=== PATIENT | female | born 2000 | race Caucasian/White ===

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

== ENCOUNTER → 2021-05-25 18:33 | Outpatient (BNVA) | payer OTHER, MEDICAID, SELFPAY | PROVIDERS: Visit Provider Nurse Practitioner Family | DX: R53.83 Other fatigue (principal); E16.2 Hypoglycemia, unspecified; D72.829 Elevated white blood cell count, unspecified | CPT/HCPCS: 80053; 80061; 81000; 81003; 82306; 82607; 83036; 84443; 85025; 86308; 86618; 86666; 86757 ==

== ENCOUNTER → 2021-05-27 15:07 | Outpatient (BNVA) | payer OTHER, MEDICAID, SELFPAY | PROVIDERS: Visit Provider Nurse Practitioner Family | DX: R30.0 Dysuria (principal); R50.9 Fever, unspecified; Z20.822 Contact with and (suspected) exposure to COVID-19; J32.0 Chronic maxillary sinusitis | CPT/HCPCS: 81003; 87086; 87635 ==

== ENCOUNTER → 2021-06-07 11:57 | Outpatient (BNVA) | payer OTHER, MEDICAID, SELFPAY | PROVIDERS: Visit Provider Nurse Practitioner Family | DX: N89.8 Other specified noninflammatory disorders of vagina (principal) | CPT/HCPCS: 87491; 87591; 87661 ==

== ENCOUNTER → 2021-08-23 14:24 | Outpatient (BNVA) | payer OTHER, MEDICAID, SELFPAY | PROVIDERS: Visit Provider Nurse Practitioner Family | DX: Z20.822 Contact with and (suspected) exposure to COVID-19 (principal) | CPT/HCPCS: 87635 ==

== ENCOUNTER 2022-10-19 16:10 | Outpatient (CLI) | payer MEDICAID, SELFPAY ==
[2022-10-19 16:10] VITALS: BMI 32.8
[2022-10-19 16:35] VITALS: BP 110/58; PULSE 82
[2022-10-19 16:55] VITALS: BP 107/53; PULSE 79
[2022-10-19 17:21] VITALS: BP 107/53; PULSE 79; RESP 18; TEMP 36.7
== END 2022-10-19 17:15 | disposition home or self-care (01) ==
LOC: OPOB 16:10 → OBGYN 16:12
PROVIDERS: Visit Provider Family Medicine
DX: O26.899 Other specified pregnancy related conditions, unspecified trimester (principal); Z3A.00 Weeks of gestation of pregnancy not specified; R10.9 Unspecified abdominal pain
CPT/HCPCS: 59025; 99211

== ENCOUNTER 2022-11-27 22:41 | Outpatient (CLI) | payer MEDICAID, SELFPAY ==
[2022-11-27 22:53] VITALS: BP 110/58; PULSE 92
[2022-11-27 22:54] VITALS: TEMP 35.7
[2022-11-27 23:24] VITALS: BP 107/54; PULSE 88; TEMP 35.6
[2022-11-27 23:30] VITALS: BP 107/54; PULSE 88; RESP 15; TEMP 35.6; BMI 33.5
== END 2022-11-27 23:31 | disposition home or self-care (01) ==
LOC: OPOB 22:45 → OBGYN 23:29
PROVIDERS: Visit Provider Family Medicine
DX: O26.899 Other specified pregnancy related conditions, unspecified trimester (principal); R10.9 Unspecified abdominal pain; Z3A.00 Weeks of gestation of pregnancy not specified
CPT/HCPCS: 59025; 99211

== ENCOUNTER 2023-08-01 12:58 | Emergency (ER) | payer MEDICAID, SELFPAY ==
[2023-08-01 13:12] VITALS: BP 122/78; PULSE 73; RESP 18; TEMP 36.4; O2SAT 100
--- NOTE | 2023-08-01 13:22 | W.ED.FEMALGU ---
HPI - Female Genitourinary General: Chief complaint: Vaginal Bleeding Stated complaint: vaginal bleeding Time Seen by Provider: 08/01/23 13:09 Source: patient Mode of arrival: ambulatory Limitations: no limitations History of Present Illness: Patient is a 23-year-old female presents to ED today for evaluation of a possible miscarriage. Patient states she has had 2 positive home tests over the past few days. She is approximately 8 months from the of her daughter. She states following delivery she was not on any methods of contraception. She states periods are normally irregular and have continued to be irregular since giving so she does not know her last menstrual period. She states this morning she noticed a small amount (quantifies as a few teaspoons) of bright red blood in the toilet. She states when she wiped there was hardly any blood on the toilet paper. No clots. She reports mild intermittent cramping. Denies vaginal discharge. Patient is monogamous with her . No concern for STIs. States this morning when she urinated-it hurt. MD elicited complaint: vaginal bleeding and possible miscarriage Onset (ago): hour(s) Severity: mild Quality of pain: cramping Consistency: intermittent Vaginal discharge: none Vaginal bleeding: scant Exacerbating factors: none Relieving factors: none Associated symptoms: Deny abdominal pain, headache(s), nausea or vaginal discharge Sexual activity: Yes Patient : Yes Possible : at home test positive Review of Systems Card: Denies: chest pain Resp: Denies: dyspnea GI: Denies: abdominal pain, nausea, vomiting or diarrhea : Reports: dysuria (x 1 this morning), vaginal bleeding, irregular period and pelvic pain (intermittent cramping); Denies: flank pain, difficulty voiding, urinary frequency, urinary urgency, urinary hesitancy, vaginal odor, vaginal discharge or dyspareunia Musc: Denies: neck pain, back pain, extremity pain or joint pain Skin/Breast: Denies: rash Neuro: Denies: headache(s), numbness in extremities, weakness in extremities or sensory changes PFSH ED PFSH: Medical History History of asthma Surgical History No pertinent past surgical history Family History Denies family history of Diabetes CAD (coronary artery disease) Clotting disorder Bleeding disorder Cancer Social History Smoking and tobacco/nicotine status: never used tobacco/nicotine Second hand smoke exposure: No Alcohol intake: never Substance/Drug Use: never Adopted: No Caregiver/support person: Yes (FAMILY) Lives independently: No Household members: family Marital status: Single service: No Current occupational status: employed Current occupation: [employer] Current gender identity: Female Special carlos needs: No Physical Exam Const: COMMON NORMALS: no acute distress, patient oriented x3, no limitations, healthy appearing and alert Resp: COMMON NORMALS: normal respiratory effort Cardio: COMMON NORMALS: regular rate and regular rhythm RATE: regular rate RHYTHM: regular rhythm GI: COMMON NORMALS: Normal to inspection, nondistended, normoactive bowel sounds present, Soft to palpation and non-tender PALPATION: Yes Soft to palpation : COMMON NORMALS: Yes no CVA tenderness BLADDER/KIDNEY EXAM: Yes no CVA tenderness Back/Pelvis: COMMON NORMALS: no CVA tenderness Neuro: COMMON NORMALS: patient oriented x3 SENSORIUM/ORIENTATION: Yes alert Course Vital Signs: Vital signs: Vital Signs Temperature 97.6 F 08/01/23 13:12 Pulse Rate 73 08/01/23 13:12 Respiratory Rate 18 08/01/23 13:12 Blood Pressure 122/78 08/01/23 13:12 Pulse Oximetry 100 08/01/23 13:12 Oxygen Delivery Me thod Room Air 08/01/23 13:12 MDM - Female Medical Decision Making Patient here with complaints of vaginal bleeding and two positive home test. Blood work today is unremarkable. Serum hCG is 10.72 which could correspond to a very very early although with her bleeding this could be trending downward with a miscarriage. At this level nothing is going to be seen on ultrasound. Discussed that she needs to follow-up with her primary care/OB provider so they can repeat hCG later this week/early next week. Return ED precautions given. Lab Data 08/01/23 13:27 Laboratory Results WBC 3.56 10^3/uL (3.29-11.43) 08/01/23 13:27 RBC 4.87 10^6/uL (3.85-5.65) 08/01/23 13:27 Hgb 11.60 g/dL (11.27-16.99) 08/01/23 13:27 Hct 37.7 % (36-47) 08/01/23 13:27 MCV 77.4 fl (85-98) L 08/01/23 13:27 MCH 23.8 pg (27-33) L 08/01/23 13:27 MCHC 30.8 g/dL (30-55) 08/01/23 13:27 RDW 16.1 % (12.1-15.1) H 08/01/23 13:27 Plt Count 160 10^3/cmm (157-399) 08/01/23 13:27 MPV 10.4 fL (7.4-10.4) 08/01/23 13:27 Neut % (Auto) 40.4 % 08/01/23 13:27 Lymph % (Auto) 48.3 % 08/01/23 13:27 [place] % (Auto) 9.3 % 08/01/23 13:27 Eos % (Auto) 1.4 % 08/01/23 13:27 Baso % (Auto) 0.6 % 08/01/23 13:27 Neut # (Auto) 1.44 10^3/uL (1.8-7.7) L 08/01/23 13:27 Lymph # (Auto) 1.7 10^3/uL (0.8-4.8) 08/01/23 13:27 [place] # (Auto) 0.3 10^3/uL (0.2-0.9) 08/01/23 13:27 Eos # (Auto) 0.1 10^3/uL (0.0-0.8) 08/01/23 13:27 Baso # (Auto) 0.0 10^3/uL (0.0-0.1) 08/01/23 13:27 Nucleated RBC % (auto) 0 % 08/01/23 13:27 Nucleated RBCs # 0.0 /100WBC 08/01/23 13:27 Ser , Semi-Qnt 10.72 mIU/mL 08/01/23 13:27 Urine Color Light yellow (Yellow) 08/01/23 13:57 Urine Appearance Clear (CLEAR) 08/01/23 13:57 Urine pH 6 (5-7) 08/01/23 13:57 Ur Specific [place] 1.010 (1.005-1.030) 08/01/23 13:57 Urine Protein Neg (Negative) 08/01/23 13:57 Urine Glucose (UA) Norm (Normal) 08/01/23 13:57 Urine Ketones Negative (Negative) 08/01/23 13:57 Urine Blood 3+ (Negative) H 08/01/23 13:57 Urine Nitrate Negative (Negative) 08/01/23 13:57 Urine Bilirubin Neg (Negative) 08/01/23 13:57 Urine Urobilinogen Norm mg/dL (Negative) 08/01/23 13:57 Ur Leukocyte Esterase Negative (Negative) 08/01/23 13:57 Urine RBC 0-4 /hpf (0-2) H 08/01/23 13:57 Urine WBC 0-4 /hpf (0-5) H 08/01/23 13:57 Ur Squamous Epith Cells 5-10 /hpf (0-5) H 08/01/23 13:57 Amorphous Sediment Not Reportable 08/01/23 13:57 Urine Bacteria Trace /hpf (NONE) 08/01/23 13:57 Urine Mucus None /hpf 08/01/23 13:57 No radiology studies performed this visit Discharge Plan Discharge Patient Disposition: Home Clinical Impression: Early stage of Condition: Stable Prescriptions: No Action 28 mg iron- 800 mcg Tablet 1 tab PO DAILY Discharge Orders: Discharge ED (Routine); Ordered 08/01/23 Ordered By: Bettye Gomez Activity Restrictions/Additional Instructions: As we discussed your hCG today is 10.72 which is very very low and could correspond to an extremely early . At this time it is too low to be able to visualize anything on an ultrasound. With your bleeding the risk of miscarriage is still possible. As I discussed with you I would like you to follow-up with your OB provider either later this week/early next week. They may opt to repeat hCG level to see if this is rising appropriately. You may return to the emergency department for severe abdominal pain, severe vaginal bleeding(soaking more than a pad an hour), or any other concerns you may have. Coding Level of Care Code ED [employer] for Bren Dean
[2023-08-01 13:35] LABS: Basophils % 0.6 %; Eosinophils # 0.1 10^3/uL (0.0-0.8); Eosinophils % 1.4 %; Hematocrit 37.7 % (36-47); Lymphocytes # 1.7 10^3/uL (0.8-4.8); Lymphocytes % 48.3 %; Mean Corpuscular HGB Conc 30.8 g/dL (30-55); Mean Corpuscular Hemoglobin 23.8 pg (27-33); Mean Corpuscular Volume 77.4 fl (85-98); Mean Platelet Volume 10.4 fL (7.4-10.4); Monocytes # 0.3 10^3/uL (0.2-0.9); Monocytes % 9.3 %; Neutrophils # 1.44 10^3/uL (1.8-7.7); Neutrophils % 40.4 %; Nucleated Red Blood Cells % 0 %; Platelet Count 160 10^3/cmm (157-399); Red Blood Count 4.87 10^6/uL (3.85-5.65); Red Cell Distribution Width 16.1 % (12.1-15.1); White Blood Count 3.56 10^3/uL (3.29-11.43)
[2023-08-01 13:58] LABS: HCG Quantitative 10.72 mIU/mL
[2023-08-01 14:16] LABS: Add Urine Microscopic? YES; Bilirubin Urine Neg (Negative); Blood Urine 3+ (Negative); Glucose Urine UA Norm (Normal); Ketones Urine Negative (Negative); Leukocyte Esterase Urine Negative (Negative); Nitrate Urine Negative (Negative); Protein Urine Neg (Negative); Urine Appearance Clear (CLEAR); Urine Color Light yellow (Yellow); Urobilinogen Urine Norm (Negative); pH Urine 6 (5-7)
[2023-08-01 14:23] LABS: Add Urine Culture? No; Bacteria Urine TRACE /hpf; RBC Urine 0-4 /hpf (0-2); WBC Urine 0-4 /hpf (0-5)
[2023-08-01 14:47] VITALS: BP 122/78; PULSE 73; RESP 18; TEMP 36.4; O2SAT 100
== END 2023-08-01 14:48 | disposition home or self-care (01) ==
PROVIDERS: Emergency Medicine; Emergency Provider Physician Assistant
DX: O20.9 Hemorrhage in early pregnancy, unspecified (principal); Z3A.00 Weeks of gestation of pregnancy not specified
CPT/HCPCS: 36415; 81001; 84702; 85025; 86850; 86900; 99283

== ENCOUNTER 2023-08-03 00:44 | Emergency (ER) | payer MEDICAID, SELFPAY ==
[2023-08-03 00:54] VITALS: BP 118/61; PULSE 87; RESP 17; TEMP 36.7; O2SAT 100; BMI 29.2
--- NOTE | 2023-08-03 01:07 | ED_ITS ---
HPI - Female Genitourinary 2 General: Chief complaint: Vaginal Bleeding Stated complaint: vag bleeding Time Seen by Provider: 08/03/23 00:51 History of Present Illness: Patient presents to the ER with complaints of worsening vaginal bleeding. Patient was seen here approximately 2 days ago had a quantitative beta-hCG of approximately 10 and was spotting at that time. Patient says she started bleeding worse and is afraid she is losing the . Patient says she has been passing bright red blood with some clots. Review of Systems 2 General: Reports: 10 or more systems reviewed and unremarkable except in HPI and below PFSH ED 2 PFSH: Medical History History of asthma Surgical History No pertinent past surgical history Family History Denies family history of Diabetes CAD (coronary artery disease) Clotting disorder Bleeding disorder Cancer Social History Smoking and tobacco/nicotine status: never used tobacco/nicotine Second hand smoke exposure: No Alcohol intake: never Substance/Drug Use: never Adopted: No Caregiver/support person: Yes (FAMILY) Lives independently: No Household members: family Marital status: Single service: No Current occupational status: employed Current occupation: [employer] Current gender identity: Female Special carlos needs: No Physical Exam 2 Const: COMMON NORMALS: no acute distress, average body habitus, patient oriented x3, no limitations, healthy appearing, alert and well nourished Neck/C-Spine: COMMON NORMALS: no JVD Chest: COMMONS NORMALS: normal inspection of the chest and normal palpation of entire chest wall Resp: COMMON NORMALS: normal respiratory effort, No retractions, No use of accessory muscles and clear to auscultation bilaterally AUSCULTATION: clear to auscultation bilaterally Cardio: COMMON NORMALS: no JVD, regular rate, regular rhythm, S1 normal heart sound present, S2 normal heart sound present, No gallops present (Cardio), No clicks present (Cardio), No murmurs present (Cardio) and No rub (Cardio) R ATE: regular rate RHYTHM: regular rhythm HEART SOUNDS: S1 normal heart sound present and S2 normal heart sound present GI: COMMON NORMALS: Normal to inspection, nondistended, normoactive bowel sounds present, Soft to palpation, non-tender, No hepatosplenomegaly present and no masses PALPATION: Yes Soft to palpation and Yes No hepatosplenomegaly present Neuro: COMMON NORMALS: patient oriented x3 SENSORIUM/ORIENTATION: Yes alert Course 2 Vital Signs: Vital signs: Vital Signs Temperature 98.1 F 08/03/23 00:54 Pulse Rate 87 08/03/23 00:54 Respiratory Rate 17 08/03/23 00:54 Blood Pressure 118/61 08/03/23 00:54 Pulse Oximetry 100 08/03/23 00:54 Oxygen Delivery Me thod Room Air, Nasal C annula 08/03/23 00:54 MDM - Female Medical Decision Making Patient presents to the ER with heavier vaginal bleeding. Patient was here approximately 2 days ago with a quantitative beta-hCG approximately 11. Patient's quantitative beta-hCG today is 4. This was discussed in detail with the patient that she is probably having a spontaneous miscarriage. Patient should go ahead and keep her appointment with Dr. Michael on roughly August 09 for further evaluation and treatment. Differential Diagnosis Unlikely abdominal pain, acute appendicitis, calculus of kidney, constipation, diverticulitis, endometriosis, gastroenteritis, pancreatitis or small bowel obstruction Medical Records I reviewed the patient's medical records. Lab Data I reviewed the patient's lab results. 08/03/23 01:23 Laboratory Results WBC 3.23 10^3/uL (3.29-11.43) L 08/03/23 01:23 RBC 4.19 10^6/uL (3.85-5.65) 08/03/23 01:23 Hgb 10.10 g/dL (11.27-16.99) L 08/03/23 01:23 Hct 32.5 % (36-47) L 08/03/23 01:23 MCV 77.6 fl (85-98) L 08/03/23 01: MCH 24.1 pg (27-33) L 08/03/23 01: MCHC 31.1 g/dL (30-55) 08/03/23 01: RDW 16.1 % (12.1-15.1) H 08/03/23 01:23 Plt Count 149 10^3/cmm (157-399) L 08/03/23 01: MPV 10.8 fL (7.4-10.4) H 08/03/23 01: Neut % (Auto) 34.4 % 08/03/23 01: Lymph % (Auto) 54.2 % 08/03/23 01: [place] % (Auto) 9.6 % 08/03/23 01: Eos % (Auto) 1.5 % 08/03/23 01: Baso % (Auto) 0.3 % 08/03/23 01:23 Neut # (Auto) 1.11 10^3/uL (1.8-7.7) L 08/03/23 01: Lymph # (Auto) 1.8 10^3/uL (0.8-4.8) 08/03/23 01: [place] # (Auto) 0.3 10^3/uL (0.2-0.9) 08/03/23 01: Eos # (Auto) 0.1 10^3/uL (0.0-0.8) 08/03/23 01: Baso # (Auto) 0.0 10^3/uL (0.0-0.1) 08/03/23 01: Nucleated RBC % (auto) 0 % 08/03/23: Nucleated RBCs # 0.0 /100WBC 08/03/23 01: Ser , Semi-Qnt 4.63 mIU/mL 08/03/23 01:23 All radiology interpretation(s) finalized by discharge Discharge Plan Discharge Patient Disposition: Home Clinical Impression: Miscarriage Condition: Stable Prescriptions: No Action 28 mg iron- 800 mcg Tablet 1 tab PO DAILY Discharge Orders: Discharge ED (Routine); Ordered 08/03/23 Ordered By: Shahid Pérez Referrals: Ruben Pascual MD [Primary Care Provider] - 1 week Patient Instructions: Miscarriage (ED) Activity Restrictions/Additional Instructions: Your quantitative beta-hCG went down approximately from 11 to a 4 this is significant for a probable miscarriage occurring. Please keep your appointment already scheduled on August 09 for further evaluation and treatment and possible recheck on your quantitative beta-hCG level. If bleeding worsens please return to the ER for further evaluation. Coding Level of Care Code ED [employer] for Chg Dianne
[2023-08-03 01:27] LABS: Basophils % 0.3 %; Eosinophils # 0.1 10^3/uL (0.0-0.8); Eosinophils % 1.5 %; Hematocrit 32.5 % (36-47); Lymphocytes # 1.8 10^3/uL (0.8-4.8); Lymphocytes % 54.2 %; Mean Corpuscular HGB Conc 31.1 g/dL (30-55); Mean Corpuscular Hemoglobin 24.1 pg (27-33); Mean Corpuscular Volume 77.6 fl (85-98); Mean Platelet Volume 10.8 fL (7.4-10.4); Monocytes # 0.3 10^3/uL (0.2-0.9); Monocytes % 9.6 %; Neutrophils # 1.11 10^3/uL (1.8-7.7); Neutrophils % 34.4 %; Nucleated Red Blood Cells % 0 %; Platelet Count 149 10^3/cmm (157-399); Red Blood Count 4.19 10^6/uL (3.85-5.65); Red Cell Distribution Width 16.1 % (12.1-15.1); White Blood Count 3.23 10^3/uL (3.29-11.43)
[2023-08-03 01:46] LABS: HCG Quantitative 4.63 mIU/mL
[2023-08-03 02:17] VITALS: BP 118/61; PULSE 94; RESP 18; O2SAT 98
== END 2023-08-03 02:18 | disposition home or self-care (01) ==
PROVIDERS: Emergency Provider Emergency Medicine; PCP Family Medicine
DX: O03.9 Complete or unspecified spontaneous abortion without complication (principal)
CPT/HCPCS: 84702; 85025; 99283

== ENCOUNTER → 2025-05-28 15:25 | Outpatient (BNVA) | payer OTHER, SELFPAY | PROVIDERS: PCP Family Medicine; Visit Provider Nurse Practitioner Family | DX: N91.2 Amenorrhea, unspecified (principal); Z32.01 Encounter for pregnancy test, result positive | CPT/HCPCS: 81025; 84702 ==